=== PATIENT | male | born 1965 | race Caucasian/White ===

== ENCOUNTER 2018-06-29 18:09 | Emergency (ER) | payer MEDICAID, OTHER, SELFPAY ==
[~2018-06-29] VITALS: Ht 180.3 cm; Wt 74.5 kg
--- NOTE | 2018-06-29 18:23 | NUR ---
PT AMBULATED TO ROOM WITH STEADY GAIT. LAB AT BEDSIDE.
--- NOTE | 2018-06-29 18:26 | NUR ---
PT AMBULATED TO BATHROOM TO PROVIDE URINE SAMPLE.
--- NOTE | 2018-06-29 18:33 | NUR ---
PT STATED THAT HE HAS URGENCY AND LEFT BACK PAIN. STATED THAT URINATING JUST NOW GAVE HIM RELIEF. PT IS ALERT, ORIENTED, WITH NAD. PT IS CONNECTED TO THE MONITOR. CALL LIGHT WITHIN REACH. FAMILY MEMBER AT BEDSIDE.
[2018-06-29 18:44] LABS: MICROSCOPIC NOT IND
[2018-06-29 18:49] LABS: CULTURE INDICATED? NO
[2018-06-29 18:51] LABS: ALBUMIN 3.9 g/dL (3.4-5.0); ANION GAP 6 mmol/L (5-15); CALCIUM 8.9 mg/dL (8.5-10.1); CHLORIDE 103 mmol/L (98-107)
[2018-06-29 18:54] LABS: ALANINE AMINOTRANSFERASE 21 U/L (12-78); ALKALINE PHOSPHATASE 50 U/L (45-117); BILIRUBIN,TOTAL 0.4 mg/dL (0.2-1.0); CREATININE 1.63 mg/dL (0.7-1.3)
--- NOTE | 2018-06-29 18:55 | NUR ---
REPORT GIVEN TO SHIKHA MONTANA.
--- NOTE | 2018-06-29 19:00 | NUR ---
REPORT RECEIVED FROM CHARLIE MONTANA.
--- NOTE | 2018-06-29 19:06 | NUR ---
PT TO US NOW.
[2018-06-29 19:08] LABS: BASOPHILS % (AUTO) 0 % (0-1); EOSINOPHILS # (AUTO) 0.09 x10^3/uL (0-0.4); EOSINOPHILS % (AUTO) 1 % (1-7); LYMPHOCYTES # (AUTO) 0.96 x10^3/uL (1-3.4); LYMPHOCYTES % (AUTO) 6 % (22-44); MD MORPH REVIEW ONLY; MEAN CORPUSCULAR HEMOGLOBIN 19.1 pg (27.5-34.5); MEAN CORPUSCULAR VOLUME 64.2 fL (81-97); MEAN PLATELET VOLUME 8.5 fL (7.4-10.4); MONOCYTES # (AUTO) 0.98 x10^3/uL (0.2-0.8); MONOCYTES % (AUTO) 7 % (2-9); NEUTROPHILS # (AUTO) 13.03 x10^3/uL (1.8-6.8); NEUTROPHILS % (AUTO) 87 % (42-75); PLATELET COUNT 346 x10^3/uL (130-400); RED BLOOD COUNT 4.86 x10^6/uL (4.38-5.82); RED CELL DISTRIBUTION WIDTH 20.7 % (9.4-14.8)
[2018-06-29 19:09] LABS: <PLATELET ESTIMATE> ADEQUATE; <PLT MORPHOLOGY> NORMAL PLT MORPH; ANISOCYTOSIS 1+; HYPOCHROMIA 1+; MICROCYTOSIS 2+; OVALOCYTES 1+; POLYCHROMASIA 1+
[2018-06-29 19:10] LABS: MEAN CORPUSCULAR HGB CONC 29.7 g/dL (33.2-36.2)
--- NOTE | 2018-06-29 19:39 | NUR ---
PT BACK TO ROOM FROM US NOW.
--- NOTE | 2018-06-29 19:40 | NUR ---
BLADDER SCAN:BEFORE VOID ABOUT 200ML/AFTER VOID ABOUT 40ML.
--- NOTE | 2018-06-29 20:04 | NUR ---
EDMD AT BEDSIDE TO EXPLAIN ALL RESULTS AT THIS TIME. AWAITING DISPO.
--- NOTE | 2018-06-29 20:11 | NUR ---
PT AMB TO BR AND BACK TO ROOM WITH STEADY GAIT.
--- NOTE | 2018-06-29 20:19 | NUR ---
PT IN CT NOW.
--- NOTE | 2018-06-29 20:26 | NUR ---
PT BACK TO ROOM FROM CT.
[2018-06-29 20:58] VITALS: BP 139/82
--- NOTE | 2018-06-29 20:59 | NUR ---
PT GIVEN DC INSTRUCTION AND SCRIPTS. PT EDUCATED REGARDING DC MEDICATIONS. PT AMB TO DC WITH STEADY GAIT. NO ACUTE DISTRESS AT DC.
== END 2018-06-29 21:00 | disposition home or self-care (01) ==
LOC: ED 20:54
DX: N13.2 Hydronephrosis with renal and ureteral calculous obstruction (principal); D64.9 Anemia, unspecified
CPT/HCPCS: 36415; 74176; 76770; 80053; 81003; 85025; 99284